=== PATIENT | male | born 1940 | race Caucasian/White ===

== ENCOUNTER 2016-04-14 07:39 | Observation (INO) | payer OTHER, MEDICARE ==
[~2016-04-14] VITALS: Ht 172.7 cm; Wt 88.0 kg
[~2016-04-14 07:39] MED LIST: ALPRAZOLAM0.25 M2 PO; ALPRAZOLAM0.5 MG PO; AMLODIPINE BESYL5 MG PO; APRESOLINE25 MG PO; ASPIRIN81 M2 PO; BENZONATATE100 MG PO; BUSPAR5 MG PO; CALCIUM ACETAT667 M2 PO; CALCIUM ACETAT667 MG PO; CARDIZEM CD,CA240 MG PO; CARDIZEM CD120 MG PO; CARDIZEM120 MG PO; CATAPRES-TTS 11 EACH TD; CLONIDINE HCL0.1 MG PO; COLACE100 MG PO; COREG25 M1 PO; COUMADIN10 MG PO; DIOVAN320 MG PO; DULCOLAX10 MG PR; FLEET ENEMA-AD118 ML PR; FLOMAX0.4 MG PO; LAMICTAL25 MG PO; LEVAQUIN500 MG PO; LIPITOR20 MG PO; LO-DOSE ASPIRIN81 M2 PO; LOPRESSOR25 MG PO; MEDROL DOSEPAK4 MG PO; METOPROLOL TART25 MG PO; NAPROSYN500 MG PO; NORCO 5/3251 TABLET PO; NORVASC10 MG PO; NORVASC5 MG PO; PANTOPRAZOLE SO40 MG PO; PERCOCET 5/31 TABLET PO; PHILLIPS'400 MG/5 M PO; PHOSPHA250 MG PO; PROTONIX40 MG PO; SENSIPAR30 MG PO; SENSIPAR90 MG PO; TAMSULOSIN HCL0.4 MG PO; TESSALON PERLE100 MG PO; TRAMADOL HCL50 MG PO; VITAMIN D5000 UNIT PO; XANAX0.25 MG PO; XANAX0.5 MG PO; ZEMPLAR1 MCG PO
[2016-04-14] MEDS ORDERED: CARDIZEM CD,CA180 MG PO (07:58)
[2016-04-14] MEDS ORDERED: ALPRAZOLAM0.25 M2 PO (08:00)
[2016-04-14] MEDS ORDERED: CALCIUM ACETAT667 MG PO ×3 (08:01→12:34)
[2016-04-14] MEDS ORDERED: CRESTOR10 MG PO (08:01)
[2016-04-14] MEDS ORDERED: PANTOPRAZOLE SO40 MG PO (08:01)
[2016-04-14] MEDS ORDERED: SENSIPAR60 MG PO (08:02)
[2016-04-14] MEDS ORDERED: RENAPLEX-D PO (08:03)
[2016-04-14 08:45] LABS: EOSINOPHIL (%) 1.5 % (0-5); EOSINOPHIL COUNT 0.1 K/uL (0-0.3); HEMATOCRIT 38.2 % (38.0-50.0); IMMATURE GRANULOCYTE (%) 1.1 % (0.0-0.7); IMMATURE GRANULOCYTE COUNT 0.8 K/uL; LYMPHOCYTE COUNT 1.2 K/uL (1.0-2.8); MCH 32.7 PG (29.0-34.0); MCV 99.2 FL (86-99); MEAN PLAT.VOLUME 11.4 uM^3 (9.0-12.4); MONOCYTE (%) 12.8 % (3-12); NEUTROPHIL (%) 68.6 % (45-76); NEUTROPHIL COUNT 5.1 K/uL (1.8-6.4); RBC DIS.WIDTH-CV 14.1 % (11.8-14.6); RBC DIS.WIDTH-SD 49.3 % (39-53); RED BLOOD COUNT 3.85 M/uL (4.00-5.50); WHITE BLOOD COUNT 7.4 K/uL (4.1-10.2)
[2016-04-14 08:55] LABS: PLATELET COUNT 149 K/uL (156-360)
[2016-04-14 08:58] LABS: CHLORIDE 95 mEq/L (99-109); POTASSIUM 5.4 mEq/L (3.7-5.4); SODIUM 139 mEq/L (136-147)
[2016-04-14 09:00] LABS: GLUCOSE 167 mg/dL (70-99); INTER. NORMALIZED RATIO 1.1; PROTHROMBIN TIME 10.8 (9.2-11.2); PTT 28.2 (25-32)
[2016-04-14 09:01] LABS: ANION GAP 17 MEQ/L (2-14)
[2016-04-14 09:04] LABS: GFR ESTIMATE (CALCULATED) 6 mL/min/; UREA NITROGEN (BUN) 25 mg/dL (9-23)
[2016-04-14 09:07] LABS: TROP-I INTERPRETATION NEGATIVE; TROPONIN-I 0.15 ng/mL (0.0-0.30)
[2016-04-14] MEDS ORDERED: BUSPAR5 MG PO (12:22)
[2016-04-14] MEDS ORDERED: NEPHRO-VITE,1 TABLET PO (12:27)
[2016-04-14] MEDS ORDERED: MIDODRINE HCL2.5 MG PO (12:28)
[2016-04-14] MEDS ORDERED: MECLIZINE HCL12.5 M1 PO (12:30)
[2016-04-14] MEDS ORDERED: DIGOXIN125 MCG PO (12:31)
[2016-04-14] MEDS ORDERED: MULTI-VITAMIN1 EAC4 PO (12:36)
[2016-04-14] MEDS ORDERED: FLEET ENEMA-AD118 ML PR (12:37)
[2016-04-14] MEDS ORDERED: DULCOLAX10 MG PR (12:37)
[2016-04-14 18:18] VITALS: BP 142/75
[2016-04-14 18:19] LABS: TROP-I INTERPRETATION NEGATIVE; TROPONIN-I 0.14 ng/mL (0.0-0.30)
[2016-04-14 23:50] VITALS: BP 118/78
[2016-04-15 00:06] VITALS: BP 141/66
[2016-04-15 01:07] LABS: TROP-I INTERPRETATION NEGATIVE; TROPONIN-I 0.16 ng/mL (0.0-0.30)
[2016-04-15 04:55] VITALS: BP 141/72
[2016-04-15 09:27] VITALS: BP 160/76
[2016-04-15 09:31] VITALS: BP 140/57
[2016-04-15 09:37] VITALS: BP 109/55
[2016-04-15 17:26] VITALS: BP 152/75
== END 2016-04-15 18:32 | disposition home or self-care (01) ==
LOC: EME → EDBD 07:39 → EDOF 13:16 → 5WEST 13:16
PROVIDERS: Emergency Medicine; Internal Medicine
DX: R55 Syncope and collapse (principal); I13.2 Hypertensive heart and chronic kidney disease with heart failure and with stage 5 chronic kidney disease, or end stage renal disease; I50.9 Heart failure, unspecified; N18.6 End stage renal disease; Z99.2 Dependence on renal dialysis; Z86.73 Personal history of transient ischemic attack (TIA), and cerebral infarction without residual deficits; I47.1 Supraventricular tachycardia; F03.90 Unspecified dementia, unspecified severity, without behavioral disturbance, psychotic disturbance, mood disturbance, and anxiety; I35.0 Nonrheumatic aortic (valve) stenosis; Z80.0 Family history of malignant neoplasm of digestive organs
CPT/HCPCS: 70450; 71010; 80048; 83605; 84484; 85025; 85610; 85730; 87040; 93005; 99281; 99285; G0257; G0378; G8978 GP CJ; G8979 GP CI; G8987 GO CJ; G8988 CI; J1644; J7050

== ENCOUNTER 2016-06-28 23:52 | Inpatient (IN) | payer OTHER, MEDICARE ==
[~2016-06-28] VITALS: Ht 172.7 cm; Wt 87.9 kg
[~2016-06-28 23:52] MED LIST changes: +CARDIZEM CD,CA180 MG PO; +CRESTOR10 MG PO; +DIGOXIN125 MCG PO; +MECLIZINE HCL12.5 M1 PO; +MIDODRINE HCL2.5 MG PO; +MULTI-VITAMIN1 EAC4 PO; +NEPHRO-VITE,1 TABLET PO; +RENAPLEX-D PO; +SENSIPAR60 MG PO
[2016-06-29 00:52] LABS: EOSINOPHIL (%) 0 % (0-5); HEMATOCRIT 34.7 % (38.0-50.0); IMMATURE GRANULOCYTE (%) 0.6 % (0.0-0.7); IMMATURE GRANULOCYTE COUNT 0.1 K/uL; INSTRUMENT ABS NEUTROPHIL CT 15.7 K/uL; LYMPHOCYTE COUNT 0.6 K/uL (1.0-2.8); MCH 32.4 PG (29.0-34.0); MCHC 32.9 G/DL (30.0-36.0); MCV 98.6 FL (86-99); MEAN PLAT.VOLUME 10.1 uM^3 (9.0-12.4); MONOCYTE (%) 4.4 % (3-12); MONOCYTE COUNT 0.8 K/uL (0-0.8); NEUTROPHIL (%) 91.5 % (45-76); NEUTROPHIL COUNT 15.7 K/uL (1.8-6.4); PLATELET COUNT 227 K/uL (156-360); RBC DIS.WIDTH-CV 14.3 % (11.8-14.6); RED BLOOD COUNT 3.52 M/uL (4.00-5.50); WHITE BLOOD COUNT 17.2 K/uL (4.1-10.2)
[2016-06-29 01:00] LABS: CHLORIDE 94 mEq/L (99-109); POTASSIUM 5.1 mEq/L (3.7-5.4); SODIUM 140 mEq/L (136-147)
[2016-06-29 01:02] LABS: GLUCOSE 137 mg/dL (70-99)
[2016-06-29 01:03] LABS: ANION GAP 14 MEQ/L (2-14)
[2016-06-29 01:06] LABS: GFR ESTIMATE (CALCULATED) 11 mL/min/
[2016-06-29 01:07] LABS: UREA NITROGEN (BUN) 13 mg/dL (9-23)
[2016-06-29 06:21] VITALS: BP 150/78
[2016-06-29] MEDS ORDERED: MIDODRINE HCL5 MG PO (10:21)
[2016-06-29] MEDS ORDERED: FLEET ENEMA-AD118 ML PR (10:23)
[2016-06-29 11:30] VITALS: BP 141/65
[2016-06-29 15:31] LABS: INFLUENZA A VIRAL ANTIGEN NEGATIVE; INFLUENZA B VIRAL ANTIGEN NEGATIVE
[2016-06-29 15:35] VITALS: BP 174/81
[2016-06-29 23:32] VITALS: BP 159/69
[2016-06-30 05:46] LABS: EOSINOPHIL (%) 2.4 % (0-5); EOSINOPHIL COUNT 0.2 K/uL (0-0.3); HEMATOCRIT 28.2 % (38.0-50.0); IMMATURE GRANULOCYTE (%) 0.7 % (0.0-0.7); IMMATURE GRANULOCYTE COUNT 0.1 K/uL; INSTRUMENT ABS NEUTROPHIL CT 6.2 K/uL; LYMPHOCYTE COUNT 1.2 K/uL (1.0-2.8); MCH 32.3 PG (29.0-34.0); MCHC 32.6 G/DL (30.0-36.0); MCV 98.9 FL (86-99); MONOCYTE (%) 9.3 % (3-12); MONOCYTE COUNT 0.8 K/uL (0-0.8); NEUTROPHIL (%) 72.6 % (45-76); NEUTROPHIL COUNT 6.2 K/uL (1.8-6.4); PLATELET COUNT 191 K/uL (156-360); RBC DIS.WIDTH-CV 14.6 % (11.8-14.6); RBC DIS.WIDTH-SD 52.2 % (39-53); RED BLOOD COUNT 2.85 M/uL (4.00-5.50)
[2016-06-30 05:47] LABS: WHITE BLOOD COUNT 8.5 K/uL (4.1-10.2)
[2016-06-30 06:14] LABS: ANION GAP 11 MEQ/L (2-14); CHLORIDE 94 MEQ/L (99-109); POTASSIUM 4.5 MEQ/L (3.7-5.4); SAMPLE HEMOLYSIS CHECK 0; SAMPLE ICTERIC CHECK 0; SAMPLE LIPEMIA CHECK 0; SODIUM 138 MEQ/L (136-147)
[2016-06-30 06:21] LABS: GFR ESTIMATE (CALCULATED) 8 mL/min/; GLUCOSE 92 mg/dL (70-99); UREA NITROGEN (BUN) 24 mg/dL (9-23); VANCOMYCIN, TROUGH 10.9 MCG/ML (10-20)
[2016-06-30 07:30] VITALS: BP 172/79
[2016-06-30 09:52] LABS: HBSG INDEX 0.21
[2016-06-30 12:25] VITALS: BP 178/80
[2016-06-30 15:15] VITALS: BP 193/80
[2016-06-30 21:24] LABS: C DIFF TOXIN NEGATIVE (NEGATIVE)
[2016-06-30 21:29] LABS: PROBE CHECK PASS; SPECIMEN PROCESSING CONTROL PASS
[2016-06-30 23:21] VITALS: BP 164/75
[2016-07-01 06:54] LABS: EOSINOPHIL (%) 2.8 % (0-5); EOSINOPHIL COUNT 0.2 K/uL (0-0.3); HEMATOCRIT 30.3 % (38.0-50.0); IMMATURE GRANULOCYTE (%) 0.9 % (0.0-0.7); IMMATURE GRANULOCYTE COUNT 0.1 K/uL; INSTRUMENT ABS NEUTROPHIL CT 5.2 K/uL; LYMPHOCYTE COUNT 1.1 K/uL (1.0-2.8); MCH 31.8 PG (29.0-34.0); MCHC 31.7 G/DL (30.0-36.0); MCV 100.3 FL (86-99); MEAN PLAT.VOLUME 10.5 uM^3 (9.0-12.4); MONOCYTE COUNT 0.7 K/uL (0-0.8); NEUTROPHIL (%) 70.5 % (45-76); NEUTROPHIL COUNT 5.2 K/uL (1.8-6.4); PLATELET COUNT 193 K/uL (156-360); RBC DIS.WIDTH-CV 14.5 % (11.8-14.6); RBC DIS.WIDTH-SD 53.3 % (39-53); RED BLOOD COUNT 3.02 M/uL (4.00-5.50); WHITE BLOOD COUNT 7.4 K/uL (4.1-10.2)
[2016-07-01 07:04] VITALS: BP 177/81
[2016-07-01 07:18] LABS: ANION GAP 8 MEQ/L (2-14); CHLORIDE 97 MEQ/L (99-109); GFR ESTIMATE (CALCULATED) 12 mL/min/; GLUCOSE 81 mg/dL (70-99); POTASSIUM 4.5 MEQ/L (3.7-5.4); SAMPLE HEMOLYSIS CHECK 0; SAMPLE ICTERIC CHECK 0; SAMPLE LIPEMIA CHECK 0; SODIUM 140 MEQ/L (136-147); UREA NITROGEN (BUN) 10 mg/dL (9-23)
[2016-07-01 11:45] VITALS: BP 159/83
[2016-07-01 15:53] VITALS: BP 168/75
[2016-07-01 17:11] LABS: ADD MIUA? YES; BILIRUBIN NEGATIVE; BLOOD SMALL; COLOR YELLOW ((YELLOW)); GLUCOSE (STRIP) 50; KETONES NEGATIVE; LEUKOCYTES MODERATE; NITRITE NEGATIVE; PROTEIN (STRIP) 30; SPECIFIC GRAVITY 1.006 (1.000-1.030); UROBILINOGEN 0.2 MG/DL (0.2-1.0)
[2016-07-01 18:00] LABS: BACTERIA NONE SEEN /HPF; CALCIUM OXALATE CRYSTALS 1+ /HPF; EPITHELIAL CELLS RARE /HPF; MUCUS NONE SEEN /LPF; RED BLOOD CELLS 20-30 /HPF (0-5); UCUL ADDED? NO
[2016-07-01 18:32] VITALS: BP 150/78
[2016-07-01 19:26] VITALS: BP 159/70
[2016-07-01 23:34] VITALS: BP 150/68
[2016-07-02 07:41] VITALS: BP 136/65
[2016-07-02 11:07] VITALS: BP 188/86
[2016-07-02] MEDS ORDERED: CEFTIN500 MG PO (13:51)
[2016-07-02] MEDS ORDERED: ALPRAZOLAM0.5 MG PO (13:57)
[2016-07-02] MEDS ORDERED: ALPRAZOLAM0.25 M2 PO (13:57)
[2016-07-02 14:23] LABS: EOSINOPHIL (%) 2.4 % (0-5); EOSINOPHIL COUNT 0.2 K/uL (0-0.3); HEMATOCRIT 29.7 % (38.0-50.0); IMMATURE GRANULOCYTE COUNT 0.1 K/uL; INSTRUMENT ABS NEUTROPHIL CT 5.5 K/uL; MCH 31.9 PG (29.0-34.0); MCV 99.7 FL (86-99); MEAN PLAT.VOLUME 10.6 uM^3 (9.0-12.4); MONOCYTE (%) 10.6 % (3-12); MONOCYTE COUNT 0.8 K/uL (0-0.8); NEUTROPHIL (%) 71.9 % (45-76); NEUTROPHIL COUNT 5.5 K/uL (1.8-6.4); PLATELET COUNT 208 K/uL (156-360); RBC DIS.WIDTH-CV 14.6 % (11.8-14.6); RBC DIS.WIDTH-SD 53.2 % (39-53); RED BLOOD COUNT 2.98 M/uL (4.00-5.50); WHITE BLOOD COUNT 7.7 K/uL (4.1-10.2)
[2016-07-02 14:31] LABS: ANION GAP 12 MEQ/L (2-14); CHLORIDE 97 MEQ/L (99-109); POTASSIUM 4.3 MEQ/L (3.7-5.4); SAMPLE HEMOLYSIS CHECK 0; SAMPLE ICTERIC CHECK 0; SAMPLE LIPEMIA CHECK 0; SODIUM 139 MEQ/L (136-147)
[2016-07-02 14:37] LABS: GFR ESTIMATE (CALCULATED) 7 mL/min/; GLUCOSE 83 mg/dL (70-99); UREA NITROGEN (BUN) 16 mg/dL (9-23)
== END 2016-07-02 18:40 | DRG 871 ==
LOC: EME → EDBD 23:52 → EDOF 06-29 04:55 → 2EAST 06-29 04:55
PROVIDERS: Emergency Medicine; Hospitalist; Internal Medicine; Internal Medicine Nephrology; Pediatrics
DX: A41.89 Other specified sepsis (principal); N18.6 End stage renal disease; N30.90 Cystitis, unspecified without hematuria; B34.9 Viral infection, unspecified; Z99.2 Dependence on renal dialysis; I12.0 Hypertensive chronic kidney disease with stage 5 chronic kidney disease or end stage renal disease; I27.2 Other secondary pulmonary hypertension; Z86.73 Personal history of transient ischemic attack (TIA), and cerebral infarction without residual deficits; F03.90 Unspecified dementia, unspecified severity, without behavioral disturbance, psychotic disturbance, mood disturbance, and anxiety; Z66 Do not resuscitate; E78.5 Hyperlipidemia, unspecified; F41.9 Anxiety disorder, unspecified; I48.91 Unspecified atrial fibrillation; Z79.01 Long term (current) use of anticoagulants; E87.5 Hyperkalemia; K21.9 Gastro-esophageal reflux disease without esophagitis
CPT/HCPCS: 71010; 71250; 74176; 80048; 80069; 80202; 81003; 83605; 85025; 87040; 87070; 87205; 87340; 87449; 87493; 87502; 94640; 94667; 99202; 99281; 99285; J0360; J0456; J0692; J1644; J1956; J2543; J3370; J7030; J7050; J7120

== ENCOUNTER 2016-08-11 12:22 | Emergency (ER) | payer OTHER, MEDICARE ==
[~2016-08-11] VITALS: Ht 172.7 cm; Wt 82.2 kg
[~2016-08-11 12:22] MED LIST changes: +CEFTIN500 MG PO; +MIDODRINE HCL5 MG PO
[2016-08-11 12:53] LABS: EOSINOPHIL (%) 1.9 % (0-5); EOSINOPHIL COUNT 0.1 K/uL (0-0.3); HEMATOCRIT 36.5 % (38.0-50.0); IMMATURE GRANULOCYTE (%) 0.4 % (0.0-0.7); INSTRUMENT ABS NEUTROPHIL CT 4.9 K/uL; MCH 31.9 PG (29.0-34.0); MCHC 32.1 G/DL (30.0-36.0); MCV 99.5 FL (86-99); MEAN PLAT.VOLUME 10.3 uM^3 (9.0-12.4); MONOCYTE (%) 10.1 % (3-12); MONOCYTE COUNT 0.7 K/uL (0-0.8); NEUTROPHIL (%) 72.6 % (45-76); NEUTROPHIL COUNT 4.9 K/uL (1.8-6.4); PLATELET COUNT 202 K/uL (156-360); RED BLOOD COUNT 3.67 M/uL (4.00-5.50); WHITE BLOOD COUNT 6.8 K/uL (4.1-10.2)
[2016-08-11 13:04] LABS: CHLORIDE 98 mEq/L (99-109); POTASSIUM 3.6 mEq/L (3.7-5.4); SODIUM 143 mEq/L (136-147)
[2016-08-11 13:06] LABS: GLUCOSE 79 mg/dL (70-99)
[2016-08-11 13:07] LABS: ANION GAP 12 MEQ/L (2-14)
[2016-08-11 13:09] LABS: GFR ESTIMATE (CALCULATED) 20 mL/min/
[2016-08-11 13:10] LABS: UREA NITROGEN (BUN) 6 mg/dL (9-23)
[2016-08-11 13:13] LABS: TROP-I INTERPRETATION NEGATIVE; TROPONIN-I 0.15 ng/mL (0.0-0.30)
[2016-08-11 14:30] LABS: ADD MIUA? YES; BILIRUBIN NEGATIVE; BLOOD SMALL; COLOR YELLOW ((YELLOW)); GLUCOSE (STRIP) 50; KETONES NEGATIVE; LEUKOCYTES TRACE; NITRITE NEGATIVE; PROTEIN (STRIP) 30; SPECIFIC GRAVITY 1.005 (1.000-1.030); UROBILINOGEN 0.2 MG/DL (0.2-1.0)
[2016-08-11 14:40] LABS: BACTERIA RARE /HPF; EPITHELIAL CELLS NONE SEEN /HPF; HYALINE CASTS 0-5 /LPF; MUCUS NONE SEEN /LPF; RED BLOOD CELLS 0-5 /HPF (0-5); UCUL ADDED? NO; WHITE BLOOD CELLS 0-5 /HPF (0-5)
[2016-08-11 17:49] VITALS: BP 130/84
== END 2016-08-11 17:50 | disposition home or self-care (01) ==
LOC: EME 12:22
PROVIDERS: Emergency Medicine
DX: F03.90 Unspecified dementia, unspecified severity, without behavioral disturbance, psychotic disturbance, mood disturbance, and anxiety (principal); I12.0 Hypertensive chronic kidney disease with stage 5 chronic kidney disease or end stage renal disease; N18.6 End stage renal disease; Z86.73 Personal history of transient ischemic attack (TIA), and cerebral infarction without residual deficits; E78.5 Hyperlipidemia, unspecified; Z79.82 Long term (current) use of aspirin
CPT/HCPCS: 70450; 71010; 80048; 81003; 84484; 85025; 93005; 99281; 99285

== ENCOUNTER 2016-08-28 11:19 | Inpatient (IN) | payer OTHER, MEDICARE ==
[~2016-08-28] VITALS: Ht 175.3 cm; Wt 76.8 kg
[2016-08-28 12:30] LABS: EOSINOPHIL (%) 0 % (0-5); HEMATOCRIT 40.6 % (38.0-50.0); IMMATURE GRANULOCYTE (%) 0.6 % (0.0-0.7); IMMATURE GRANULOCYTE COUNT 0.1 K/uL; INSTRUMENT ABS NEUTROPHIL CT 17.5 K/uL; LYMPHOCYTE COUNT 1.7 K/uL (1.0-2.8); MCH 30.7 PG (29.0-34.0); MCV 95.8 FL (86-99); MEAN PLAT.VOLUME 10.7 uM^3 (9.0-12.4); MONOCYTE (%) 7.3 % (3-12); MONOCYTE COUNT 1.5 K/uL (0-0.8); NEUTROPHIL (%) 83.9 % (45-76); NEUTROPHIL COUNT 17.5 K/uL (1.8-6.4); PLATELET COUNT 210 K/uL (156-360); RBC DIS.WIDTH-CV 14.5 % (11.8-14.6); RBC DIS.WIDTH-SD 51.1 % (39-53); RED BLOOD COUNT 4.24 M/uL (4.00-5.50); WHITE BLOOD COUNT 20.9 K/uL (4.1-10.2)
[2016-08-28 12:36] LABS: INTER. NORMALIZED RATIO 1.2; PROTHROMBIN TIME 12.1 (9.2-11.2); PTT 32.4 (25-32)
[2016-08-28 12:41] LABS: CHLORIDE 95 mEq/L (99-109); POTASSIUM 4.2 mEq/L (3.7-5.4); SODIUM 136 mEq/L (136-147)
[2016-08-28 12:43] LABS: GLUCOSE 105 mg/dL (70-99)
[2016-08-28 12:45] LABS: ANION GAP 11 MEQ/L (2-14)
[2016-08-28 12:47] LABS: GFR ESTIMATE (CALCULATED) 11 mL/min/
[2016-08-28 12:48] LABS: UREA NITROGEN (BUN) 22 mg/dL (9-23)
[2016-08-28 12:50] LABS: TROP-I INTERPRETATION NEGATIVE; TROPONIN-I 0.28 ng/mL (0.0-0.30)
[2016-08-28] MEDS ORDERED: XANAX0.25 MG PO (15:36)
[2016-08-28] MEDS ORDERED: MILK OF MAGN PO (15:40)
[2016-08-28 19:45] VITALS: BP 195/90
[2016-08-29] VITALS (7 sets, daily range): BP systolic 135–189; BP diastolic 70–99
[2016-08-29 06:07] LABS: HEMATOCRIT 34.8 % (38.0-50.0); MCV 96.9 FL (86-99); MEAN PLAT.VOLUME 10.9 uM^3 (9.0-12.4); PLATELET COUNT 175 K/uL (156-360); RBC DIS.WIDTH-CV 14.6 % (11.8-14.6); RBC DIS.WIDTH-SD 51.9 % (39-53); RED BLOOD COUNT 3.59 M/uL (4.00-5.50); WHITE BLOOD COUNT 13.3 K/uL (4.1-10.2)
[2016-08-29 06:13] LABS: ANION GAP 13 MEQ/L (2-14); CHLORIDE 95 MEQ/L (99-109); GFR ESTIMATE (CALCULATED) 8 mL/min/; GLUCOSE 88 mg/dL (70-99); POTASSIUM 4.4 MEQ/L (3.7-5.4); SAMPLE HEMOLYSIS CHECK 0; SAMPLE ICTERIC CHECK 0; SAMPLE LIPEMIA CHECK 0; SODIUM 139 MEQ/L (136-147)
[2016-08-29 06:15] LABS: UREA NITROGEN (BUN) 39 mg/dL (9-23)
[2016-08-30 03:28] VITALS: BP 148/70
[2016-08-30 07:07] VITALS: BP 165/86
[2016-08-30 09:30] LABS: ANION GAP 22 MEQ/L (2-14); CHLORIDE 97 MEQ/L (99-109); GFR ESTIMATE (CALCULATED) 6 mL/min/; POTASSIUM 5.1 MEQ/L (3.7-5.4); SAMPLE HEMOLYSIS CHECK 0; SAMPLE ICTERIC CHECK 0; SAMPLE LIPEMIA CHECK 0; SODIUM 141 MEQ/L (136-147)
[2016-08-30 09:32] LABS: GLUCOSE 160 mg/dL (70-99); UREA NITROGEN (BUN) 69 mg/dL (9-23)
[2016-08-30 09:32] LABS: HEMATOCRIT 40.3 % (38.0-50.0); MCH 31.8 PG (29.0-34.0); MCHC 33.5 G/DL (30.0-36.0); MCV 94.8 FL (86-99); MEAN PLAT.VOLUME 11.4 uM^3 (9.0-12.4); PLATELET COUNT 192 K/uL (156-360); RBC DIS.WIDTH-CV 14.6 % (11.8-14.6); RED BLOOD COUNT 4.25 M/uL (4.00-5.50); WHITE BLOOD COUNT 12.8 K/uL (4.1-10.2)
[2016-08-30 11:32] VITALS: BP 165/91
[2016-08-30 12:24] LABS: HBSG INDEX 0.18
[2016-08-30 17:33] VITALS: BP 126/84
[2016-08-30 18:36] VITALS: BP 127/56
[2016-08-31] VITALS (8 sets, daily range): BP systolic 114–148; BP diastolic 55–86
[2016-08-31 09:46] LABS: ANION GAP 16 MEQ/L (2-14); CHLORIDE 99 MEQ/L (99-109); GFR ESTIMATE (CALCULATED) 9 mL/min/; GLUCOSE 151 mg/dL (70-99); POTASSIUM 4.5 MEQ/L (3.7-5.4); SAMPLE HEMOLYSIS CHECK 1; SAMPLE ICTERIC CHECK 0; SAMPLE LIPEMIA CHECK 0; SODIUM 143 MEQ/L (136-147); UREA NITROGEN (BUN) 51 mg/dL (9-23)
[2016-08-31 09:55] LABS: HEMATOCRIT 38.4 % (38.0-50.0); MCH 31.5 PG (29.0-34.0); MCHC 33.1 G/DL (30.0-36.0); MCV 95.3 FL (86-99); MEAN PLAT.VOLUME 11.3 uM^3 (9.0-12.4); PLATELET COUNT 242 K/uL (156-360); RBC DIS.WIDTH-CV 15.1 % (11.8-14.6); RBC DIS.WIDTH-SD 52.3 % (39-53); RED BLOOD COUNT 4.03 M/uL (4.00-5.50); WHITE BLOOD COUNT 17.3 K/uL (4.1-10.2)
[2016-09-01 05:32] VITALS: BP 124/92
[2016-09-01 07:17] VITALS: BP 153/82
[2016-09-01 11:13] VITALS: BP 140/86
[2016-09-01 13:00] LABS: HEMATOCRIT 37.3 % (38.0-50.0); MCH 31.4 PG (29.0-34.0); MCHC 32.4 G/DL (30.0-36.0); MCV 96.9 FL (86-99); MEAN PLAT.VOLUME 10.9 uM^3 (9.0-12.4); PLATELET COUNT 266 K/uL (156-360); RBC DIS.WIDTH-CV 15.3 % (11.8-14.6); RBC DIS.WIDTH-SD 54.1 % (39-53); RED BLOOD COUNT 3.85 M/uL (4.00-5.50); WHITE BLOOD COUNT 14.2 K/uL (4.1-10.2)
[2016-09-01 13:42] LABS: ANION GAP 17 MEQ/L (2-14); CHLORIDE 94 MEQ/L (99-109); GFR ESTIMATE (CALCULATED) 7 mL/min/; GLUCOSE 182 mg/dL (70-99); MAGNESIUM 2.1 mg/dl (1.3-2.7); POTASSIUM 4.6 MEQ/L (3.7-5.4); SAMPLE HEMOLYSIS CHECK 0; SAMPLE ICTERIC CHECK 0; SAMPLE LIPEMIA CHECK 0; SODIUM 141 MEQ/L (136-147); UREA NITROGEN (BUN) 81 mg/dL (9-23)
[2016-09-01 13:44] LABS: TROP-I INTERPRETATION NEGATIVE
[2016-09-01 19:01] VITALS: BP 178/82
[2016-09-01 22:25] VITALS: BP 167/87
[2016-09-02 02:06] LABS: POINT-OF-CARE METER ID UU13113698
[2016-09-02 03:11] VITALS: BP 137/67
[2016-09-02 08:09] VITALS: BP 121/71
[2016-09-02 08:48] LABS: HEMATOCRIT 39.6 % (38.0-50.0); MCH 31.8 PG (29.0-34.0); MCHC 32.6 G/DL (30.0-36.0); MCV 97.5 FL (86-99); MEAN PLAT.VOLUME 10.3 uM^3 (9.0-12.4); PLATELET COUNT 298 K/uL (156-360); RBC DIS.WIDTH-SD 54.3 % (39-53); RED BLOOD COUNT 4.06 M/uL (4.00-5.50); WHITE BLOOD COUNT 14.4 K/uL (4.1-10.2)
[2016-09-02 09:19] LABS: ANION GAP 14 MEQ/L (2-14); CHLORIDE 99 MEQ/L (99-109); GFR ESTIMATE (CALCULATED) 11 mL/min/; POTASSIUM 4.3 MEQ/L (3.7-5.4); SAMPLE HEMOLYSIS CHECK 0; SAMPLE ICTERIC CHECK 0; SAMPLE LIPEMIA CHECK 0; SODIUM 142 MEQ/L (136-147); UREA NITROGEN (BUN) 44 mg/dL (9-23)
[2016-09-02 09:23] LABS: GLUCOSE 93 mg/dL (70-99)
[2016-09-02 11:15] VITALS: BP 139/60
[2016-09-02 16:00] VITALS: BP 140/67
[2016-09-02 19:30] VITALS: BP 147/77
[2016-09-03 00:20] VITALS: BP 147/66
[2016-09-03 04:47] VITALS: BP 174/81
[2016-09-03 07:18] VITALS: BP 147/65
[2016-09-03 08:35] LABS: HEMATOCRIT 35.7 % (38.0-50.0); MCH 30.5 PG (29.0-34.0); MCHC 31.9 G/DL (30.0-36.0); MCV 95.5 FL (86-99); MEAN PLAT.VOLUME 10.3 uM^3 (9.0-12.4); PLATELET COUNT 255 K/uL (156-360); RBC DIS.WIDTH-CV 14.9 % (11.8-14.6); RED BLOOD COUNT 3.74 M/uL (4.00-5.50); WHITE BLOOD COUNT 13.3 K/uL (4.1-10.2)
[2016-09-03 09:07] LABS: ANION GAP 15 MEQ/L (2-14); CHLORIDE 99 MEQ/L (99-109); SAMPLE HEMOLYSIS CHECK 0; SAMPLE ICTERIC CHECK 0; SAMPLE LIPEMIA CHECK 0; SODIUM 140 MEQ/L (136-147)
[2016-09-03 09:13] LABS: GFR ESTIMATE (CALCULATED) 8 mL/min/; GLUCOSE 133 mg/dL (70-99)
[2016-09-03 09:16] LABS: UREA NITROGEN (BUN) 76 mg/dL (9-23)
[2016-09-03 13:05] VITALS: BP 166/77
[2016-09-03 19:20] VITALS: BP 131/69
[2016-09-03 23:27] VITALS: BP 155/72
[2016-09-04 04:53] VITALS: BP 128/82
[2016-09-04 07:17] VITALS: BP 182/85
[2016-09-04 09:11] LABS: HEMATOCRIT 39.7 % (38.0-50.0); MCH 30.5 PG (29.0-34.0); MCHC 31.7 G/DL (30.0-36.0); MCV 96.1 FL (86-99); MEAN PLAT.VOLUME 10.3 uM^3 (9.0-12.4); PLATELET COUNT 286 K/uL (156-360); RBC DIS.WIDTH-CV 15.1 % (11.8-14.6); RBC DIS.WIDTH-SD 53.3 % (39-53); RED BLOOD COUNT 4.13 M/uL (4.00-5.50); WHITE BLOOD COUNT 16.3 K/uL (4.1-10.2)
[2016-09-04 09:22] LABS: ANION GAP 9 MEQ/L (2-14); CHLORIDE 97 MEQ/L (99-109); GFR ESTIMATE (CALCULATED) 11 mL/min/; GLUCOSE 101 mg/dL (70-99); POTASSIUM 4.7 MEQ/L (3.7-5.4); SAMPLE HEMOLYSIS CHECK 0; SAMPLE ICTERIC CHECK 0; SAMPLE LIPEMIA CHECK 0; SODIUM 139 MEQ/L (136-147); UREA NITROGEN (BUN) 46 mg/dL (9-23)
[2016-09-04 11:14] VITALS: BP 162/74
[2016-09-04] MEDS ORDERED: CITALOPRAM HBR10 MG PO (13:41)
[2016-09-04 13:42] VITALS: BP 134/76
[2016-09-04] MEDS ORDERED: PREDNISONE10 MG PO (13:47)
[2016-09-04 15:31] VITALS: BP 153/74
== END 2016-09-04 20:36 | DRG 177 ==
LOC: EME 11:19 → EDOF 14:53 → 4EAST 14:53 → EDOF 14:53 → 4EAST 17:29
PROVIDERS: Emergency Medicine; Internal Medicine; Internal Medicine Nephrology; Physician Assistant; Student in an Organized Health Care Education/Training Program
PROC: 5A1D00Z (ICD-10-PCS; principal; 2016-08-30)
DX: J69.0 Pneumonitis due to inhalation of food and vomit (principal); N18.6 End stage renal disease; I12.0 Hypertensive chronic kidney disease with stage 5 chronic kidney disease or end stage renal disease; N25.81 Secondary hyperparathyroidism of renal origin; I47.1 Supraventricular tachycardia; J98.11 Atelectasis; J90 Pleural effusion, not elsewhere classified; Z66 Do not resuscitate; E55.9 Vitamin D deficiency, unspecified; G89.29 Other chronic pain; Z99.2 Dependence on renal dialysis; D63.1 Anemia in chronic kidney disease; E78.5 Hyperlipidemia, unspecified; I48.2 Chronic atrial fibrillation; I48.0 Paroxysmal atrial fibrillation; I27.2 Other secondary pulmonary hypertension; I95.1 Orthostatic hypotension; G40.909 Epilepsy, unspecified, not intractable, without status epilepticus; F03.90 Unspecified dementia, unspecified severity, without behavioral disturbance, psychotic disturbance, mood disturbance, and anxiety; R13.10 Dysphagia, unspecified; F32.9 Major depressive disorder, single episode, unspecified; F43.20 Adjustment disorder, unspecified; M25.78 Osteophyte, vertebrae; R09.02 Hypoxemia; R29.6 Repeated falls; Z86.73 Personal history of transient ischemic attack (TIA), and cerebral infarction without residual deficits; Z87.01 Personal history of pneumonia (recurrent)
CPT/HCPCS: 71010; 71020; 71250; 74230; 80048; 80069; 81003; 82948; 83735; 84484; 85025; 85027; 85610; 85730; 87040; 87340; 92526 GN; 92610 GN; 92611 GN; 93005; 94640; 94640 76; 94760; 94799; 99202; 99281; 99285; G0378; J0360; J1644; J2405; J2543; J2920; J2930; J7042; J7050; J7512